=== PATIENT | female | born 1970 | race Caucasian/White ===

== ENCOUNTER → 2024-10-11 | Outpatient (CLI) | payer OTHER, BC, SELFPAY ==
--- NOTE | 2024-10-11 09:15 | XR_ITS ---
Examination: MRI lumbar spine without contrast Date and time of exam: October 11, 2024 0924 hrs. Indications: Lower back pain radiating down the left leg numbness and paresthesias in both legs beginning 2 years ago Technique: Multiple MRI axial and sagittal sections lumbar spine. Sagittal T2-weighted images, TR 3500, TE 118 T1 weighted transverse sections, TR 688 T8.5, T2-weighted sagittal sections T1 weighted sagittal sections TR 621, TE 30 T2 axial sections, TR 4, 190, TE 84. Findings: Adequate alignment lumbar vertebral bodies on the lateral view No lumbar fracture Normal marrow signal lumbar vertebral bodies Disc desiccation L4-L5, L5-S1 No spondylolisthesis L5-S1 4 mm central 8mm left foraminal disc bulge with mild left L5 ganglionic compression L4-L5 4 mm central lumbar disc bulge L3-L4 no disc protrusion L2-L3 no disc protrusion L1-L2 no disc protrusion Impression: L5-S1 4 mm central 8mm left foraminal disc bulge with mild left L5 ganglionic compression L4-L5 4 mm central lumbar disc bulge
== END | disposition home or self-care (01) ==
LOC: SMRI 08:56
PROVIDERS: Referring Provider Family Medicine; Visit Provider Family Medicine
DX: M51.369 Other intervertebral disc degeneration, lumbar region without mention of lumbar back pain or lower extremity pain (principal); M51.379 Other intervertebral disc degeneration, lumbosacral region without mention of lumbar back pain or lower extremity pain
CPT/HCPCS: 72148

== ENCOUNTER → 2025-01-01 | Outpatient (CLI) | payer OTHER, SELFPAY ==
--- NOTE | 2025-01-01 | XR_ITS ---
Examination: Hand, right 3 views Technique: Hand AP, oblique, lateral 3 views Date and time of exam: January 01, 2025 1244 hours INDICATIONS: Patient fell today with injury to the hand, hand pain FINDINGS: No acute fracture No dislocation No foreign body IMPRESSION: No acute fracture
--- NOTE | 2025-01-01 | XR_ITS ---
Examination: Lumbar spine, 5 views Technique: Lumbar spine AP, lateral, coned lateral lower lumbar spine, bilateral obliques 5 views Exam date and time: January 01, 2025 1238 hours INDICATIONS: Patient fell today with into the lower back, lower back pain. FINDINGS: Adequate alignment lumbar vertebral bodies No lumbar fracture Mild lumbar spondylosis Mild to moderate degenerative disc disease L4-L5, L5-S1 IMPRESSION: No lumbar fracture
== END | disposition home or self-care (01) ==
LOC: CDIM 11:32
PROVIDERS: PCP Family Medicine; Referring Provider Physician Assistant; Visit Provider Physician Assistant
DX: S69.91XA Unspecified injury of right wrist, hand and finger(s), initial encounter (principal); S39.92XA Unspecified injury of lower back, initial encounter; W19.XXXA Unspecified fall, initial encounter
CPT/HCPCS: 72110; 73130

== ENCOUNTER → 2025-01-09 | Outpatient (CLI) | payer OTHER, BC, SELFPAY ==
--- NOTE | 2025-01-09 15:30 | XR_ITS ---
Examination: CT lumbar spine, without contrast. 2-D sagittal reconstructions. 2-D coronal reconstructions. 3-D reconstructions. Date and time of exam:January 09, 2025 1530 hours INDICATIONS: Low back pain years CTDI: vol (mGy):22.9 DLP: (mGycm):741 Technique: Multiple 1.25 mm axial sections of the lumbar spine without intravenous contrast have been obtained. 2-D sagittal and coronal reconstructions have been obtained. 3-D reconstructions have been obtained. Low dose protocols were performed. One or more of the following dose reduction techniques were used; automated exposure control, adjustment of the mA and/or KV according to patient size, use of iterative reconstruction technique. Findings: Adequate alignment lumbar vertebral bodies on the lateral view Mild disc narrowing L4-L5, L5-S1 No spondylolisthesis Mild lumbar spondylosis Lumbar pedicles, laminae transverse and posterior spinous processes intact L5-S1 mild bilateral neural foraminal stenosis producing mild bilateral L5 ganglionic compression L4-L5 3 mm central lumbar disc bulge L2-L3 no disc protrusion L2-L3 no disc protrusion L1-L2 no disc protrusion IMPRESSION: Mild degenerative disc disease L4-L5, L5-S1 L5-S1 mild bilateral neural foraminal stenosis producing mild bilateral L5 ganglionic compression L4-L5 3 mm central lumbar disc bulge
== END | disposition home or self-care (01) ==
LOC: CCTX 15:11
PROVIDERS: PCP Family Medicine; Referring Provider Student in an Organized Health Care Education/Training Program; Visit Provider Student in an Organized Health Care Education/Training Program
DX: M51.369 Other intervertebral disc degeneration, lumbar region without mention of lumbar back pain or lower extremity pain (principal); M51.379 Other intervertebral disc degeneration, lumbosacral region without mention of lumbar back pain or lower extremity pain; M48.07 Spinal stenosis, lumbosacral region; G95.29 Other cord compression
CPT/HCPCS: 72131

== ENCOUNTER → 2025-01-29 | Outpatient (CLI) | payer BC, SELFPAY ==
--- NOTE | 2025-01-29 15:52 | XR_ITS ---
Examination: PA lateral chest 2 views TECHNIQUE: Upright PA and lateral chest 2 views Date and time: January 29, 2025, 1606 hours INDICATIONS: Preop FINDINGS: Normal heart size. Lungs are clear. Moderate thoracic dextroscoliosis. IMPRESSION: No active disease.
[2025-01-29 16:21] LABS: Collection Type, Urine Clean Catch
--- NOTE | 2025-01-29 16:39 | EKG_ITS ---
[facility] Test Date: 2025-01-29 Pat Name: MARY ANN MENSAH Department: Room: - Gender: Female Dorr Operator: KADEEM : [id number] Requested By: Alma Galloway Order Number: [id number] Reading MD: Alma Galloway Measurements Intervals [place] Rate: 71 P: 54 [place]: 181 QRS: 16 QRSD: 102 T: 43 QT: 394 QTc: 429 Interpretive Statements SINUS RHYTHM POSSIBLE LEFT ATRIAL ENLARGEMENT [-0.1mV P WAVE IN V1/V2] INCOMPLETE RIGHT BUNDLE BRANCH BLOCK [90+ ms QRS DURATION, TERMINAL R IN V1/V2, 40+ ms S IN I/aVL/V4/V5/V6] Compared to ECG 03/03/2022 11:18:16 Incomplete right bundle-branch block now present /store/S0/[id number]
[2025-01-29 17:50] LABS: Basophils # (Auto) 0.1 Thou/mm3 (0.0-0.2); Basophils % (Auto) 1 % (0-2.5); Eosinophils # (Auto) 0.4 Thou/mm3 (0.0-0.5); Eosinophils % (Auto) 6 % (0-10); Hematocrit 42.5 % (36.0-46.0); Hemoglobin 14.2 g/dL (12.0-16.0); Immature Granulocytes % (Auto) 0 % (0-0); Immature Granulocytes Auto 0.01 Thou/mm3 (0.00-0.00); Lymphocytes # (Auto) 1.9 Thou/mm3 (1.0-4.8); Lymphocytes % (Auto) 28 % (10-50); Mean Corpuscular HGB Conc 33.4 g/dl (31.0-37.0); Mean Corpuscular Hemoglobin 28.7 pg (25.0-35.0); Mean Corpuscular Volume 86 fL (80-100); Monocytes # (Auto) 0.5 Thou/mm3 (0.0-0.8); Monocytes % (Auto) 7 % (0-12); Neutrophils % (Auto) 59 % (37-80); Nucleated Red Blood Cell % 0 /100 WBC (0); Platelet Count 297 Thou/mm3 (140-440); RDW Standard Deviation 39.8 fL (36.4-46.3); Red Blood Count 4.95 Miln/mm3 (4.00-5.20); White Blood Count 6.7 Thou/mm3 (3.6-11.0)
[2025-01-29 18:04] LABS: Bilirubin,Urine Negative (Negative); Blood,Urine 1+ (Negative); Clarity,Urine Clear (Clear/Hazy); Color,Urine Lt-Yellow (Lt Yel-Yel); Glucose, Urine Negative (Negative); Ketones,Urine Negative (Negative); Leukocyte Esterase,Urine Negative (Negative); Nitrite,Urine Negative (Negative); PH,Urine 5.5 (5.0-7.0); Protein,Urine Negative (Neg - Trace); RBC,Urine 6 /hpf (0-3); Specific Gravity,Urine 1.028 (1.001-1.035); Squamous Epithelial Cell,Urine 1 /hpf (0-5); Urobilinogen,Urine Negative mg/dL (0.0-1.0); WBC,Urine < 1 /hpf (0-5)
[2025-01-29 18:07] LABS: INR 0.9 (0.9-1.3); Partial Thromboplastin Time 26.9 Seconds (22.0-36.0); Prothrombin Time 9.9 Seconds (9.0-12.2)
[2025-01-29 18:09] LABS: Alanine Aminotransferase 13 U/L (10-49); Albumin, Serum 4.9 gm/dL (3.5-5.0); Albumin/Globulin Ratio 2.1 (1.2-2.2); Alkaline Phosphatase 59 U/L (46-116); Anion Gap 10 (7-16); Aspartate Amino Transferase 19 U/L (0-34); BUN/Creatinine Ratio 10 Ratio (12-20); Bilirubin,Total 0.3 mg/dL (0.3-1.2); Blood Urea Nitrogen 11 mg/dL (9-23); Calcium 9.2 mg/dL (8.3-10.6); Calcium (Corrected) 9.2 mg/dL (8.5-10.1); Carbon Dioxide 30.3 mMol/L (20.0-31.0); Chloride 102 mMol/L (98-107); Creatinine (Component) 1.1 mg/dL (0.6-1.3); Globulin 2.3 gm/dL (2.3-3.5); Glucose 91 mg/dL (74-106); Osmolality,Calculated 282 (275-295); Potassium 3.7 mMol/L (3.4-5.1); Sodium 142 mMol/L (136-145); Total Protein 7.2 gm/dL (5.7-8.2); eGFR 59 See Note
== END | disposition home or self-care (01) ==
PROVIDERS: PCP Family Medicine; Referring Provider Family Medicine; Visit Provider Family Medicine
DX: Z01.818 Encounter for other preprocedural examination (principal); M54.16 Radiculopathy, lumbar region
CPT/HCPCS: 36415; 71046; 80053; 81001; 85025; 85610; 85730; 87086; 93005